=== PATIENT | male | born 1980 | race Caucasian/White ===

== ENCOUNTER 2017-12-15 00:16 | Emergency (ER) | payer BC, OTHER ==
[2017-12-15 00:21] VITALS: BMI 34.4
[2017-12-15 00:29] VITALS: BP 145/87; PULSE 93; RESP 18; TEMP 98.2; O2SAT 98
--- NOTE | 2017-12-15 01:07 | ED PDOC ---
Arrival/HPI - General Time Seen by Provider: 12/15/17 01:02 Historian: Patient - History of Present Illness Narrative History of Present Illness (Text): 12/15/17 01:03 37 y/o male, no significant pmh, drug allergy including penicillin, c/o lt. wrist injury and pain x 2 days. Pt. stated that he caught his left wrist on the [place]ann[place] yesterday, twisted, been having pain, no difficulty moving the left hand 5 digit, no numbness or tingling, no rash, no palpitation, no other medical or psychological complaints. Past Medical History - Tetanus Immunization Tetanus Immunization: Up to Date - Cardiac Hx Cardiac Disorders: No - Pulmonary Hx Sleep Apnea: Yes (cpap machine) - Gastrointestinal Hx Irritable Bowel: Yes - Psychiatric Hx Substance Use: No - Surgical History Other/Comment: left foot/r eye maxillo/facial - Anesthesia Hx Anesthesia: No Family/Social History - Physician Review Nursing Documentation Reviewed: Yes Family/Social History: Unknown Family HX Smoking Status: Light Smoker < 10 Cigarettes Daily Hx Alcohol Use: No Hx Substance Use: No Allergies/Home Meds Allergies/Adverse Reactions: Allergies Penicillins Allergy (Verified 12/15/17 00:21) RASH shellfish derived Allergy (Verified 12/15/17 00:21) ANAPHYLAXIS Home Medications: Home Meds Medication Instructions Recorded Confirmed Omeprazole [Prilosec] 1 tab PO DAILY 11/09/15 12/15/17 Armodafinil [Nuvigil 250 mg Tab] 250 mg PO DAILY 12/15/17 12/15/17 Review of Systems - Review of Systems Constitutional: absent: Fatigue, Fevers Eyes: absent: Vision Changes ENT: absent: Hearing Changes Respiratory: absent: SOB, Cough Cardiovascular: absent: Chest Pain Gastrointestinal: absent: Abdominal Pain, Nausea, Vomiting Musculoskeletal: Arthralgias. absent: Back Pain, Neck Pain, Myalgias Skin: absent: Rash, Pruritis Neurological: absent: Headache, Dizziness Psychiatric: absent: Anxiety, Depression, Suicidal Ideation Physical Exam Vital Signs Reviewed: Yes Vital Signs Temp Pulse Resp BP Pulse Ox 12/15/17 00:28 98.2 F 93 H 18 145/87 98 Temperature: Afebrile Blood Pressure: Normal Pulse: Regular Respiratory Rate: Normal Appearance: Positive for: Well-Appearing, Non-Toxic, Comfortable Pain Distress: Mild Mental Status: Positive for: Alert and Oriented X 3 - Systems Exam Head: Present: Atraumatic, Normocephalic Pupils: Present: PERRL Extroacular Muscles: Present: EOMI Conjunctiva: Present: Normal Mouth: Present: Moist Mucous Membranes Neck: Present: Normal Range of Motion Respiratory/Chest: Present: Clear to Auscultation, Good Air Exchange. No: Respiratory Distress, Accessory Muscle Use Cardiovascular: Present: Regular Rate and Rhythm, Normal S1, S2. No: Murmurs Abdomen: No: Tenderness, Distention, Peritoneal Signs Back: Present: Normal Inspection Upper Extremity: Present: Normal Inspection, Other (Lt. wrist: mild +ttp on the dorsum distal ulnar region, no scaphoid tenderness, no hand tenderness, FROM without limitation, sensation intact, motor 5/5, +radial pulse, capillary refill < 2 seconds, neurovascular intact. ). No: Cyanosis, Edema Lower Extremity: Present: Normal Inspection. No: Edema Neurological: Present: GCS=15, CN II-XII Intact, Speech Normal Skin: Present: Warm, Dry, Normal Color. No: Rashes Psychiatric: Present: Alert, Oriented x 3, Normal Insight, Normal Concentration Medical Decision Making ED Course and Treatment: 12/15/17 01:08 -lt. wrist xray -Motrin -wrist splint 12/15/17 01:25 -Xray show no fracture or dislocation -Pain decreased, wrist splint applied with neurovascular intact. -Discharge home with motrin, wrist splint, ice compression, follow up with your own pmd and orthopedic within 2 days, return to the ER for any new or worsening signs or symptoms. - RAD Interpretation Radiology Orders: 12/15/17 01:02 WRIST, LEFT 3 VIEWS [RAD] Stat normal left wrist radiograph Thread Laster: Radiologist - Medication Orders Current Medication Orders: Discontinued Medications Ibuprofen (Motrin Tab) 600 mg PO STAT STA Stop: 12/15/17 01:03 - PA / ANIMATION ARTIST / Resident Statement MD/DO has reviewed & agrees with the documentation as recorded. Disposition/Present on Arrival - Present on Arrival Any Indicators Present on Arrival: No History of DVT/PE: No History of Uncontrolled Diabetes: No Urinary Catheter: No History of Decub. Ulcer: No History Surgical Site Infection Following: None - Disposition Have Diagnosis and Disposition been Completed?: Yes Diagnosis: Wrist pain, Wrist injury Disposition: HOME/ ROUTINE Disposition Time: :10 Patient Plan: Discharge Condition: GOOD Additional Instructions: -Discharge home with motrin, wrist splint, ice compression, follow up with your own pmd and orthopedic within 2 days, return to the ER for any new or worsening signs or symptoms. Prescriptions: Ibuprofen [Motrin] 600 mg PO QID PRN #30 tab PRN Reason: Other Referrals: Malcolm Lisa III, MD [Medical Doctor] - Follow up with primary Forms: WORK NOTE
--- NOTE | 2017-12-15 11:11 | RAD ---
PROCEDURE: Left Wrist Radiographs. HISTORY: lt. wrist pain COMPARISON: None. FINDINGS: BONES: Normal. No fracture. JOINTS: Normal. No dislocation. SOFT TISSUES: Normal. OTHER FINDINGS: None. IMPRESSION: Normal left wrist radiographs.
== END 2017-12-15 01:30 | disposition home or self-care (01) ==
LOC: ED 00:16
DX: S69.92XA Unspecified injury of left wrist, hand and finger(s), initial encounter (principal); W23.1XXA Caught, crushed, jammed, or pinched between stationary objects, initial encounter; Y92.9 Unspecified place or not applicable